=== PATIENT | female | born 1980 | race Hispanic/Latino ===

== ENCOUNTER 2018-05-28 14:25 | Emergency (ER) | payer SELFPAY, MEDICAID | END 2018-05-28 18:04 | disposition left against medical advice (07) | LOC: C.ER 14:25 ==

== ENCOUNTER 2018-05-29 16:27 | Inpatient (IN) | payer MEDICAID | END 2018-06-05 13:57 | disposition home or self-care (01) | LOC: C.ER 16:27 → C.5E 05-30 00:34 ==